=== PATIENT | female | born 1940 | race Caucasian/White ===

== ENCOUNTER 2020-08-20 12:15 | Outpatient (CLI) | payer BC, SELFPAY ==
--- NOTE | 2020-08-20 12:23 | US_ITS ---
WS: [id number] ULTRASOUND SOFT TISSUES submandibular regions. HISTORY: LYMPHADENOPATHY COMPARISON: None available. TECHNIQUE: 2-D and color Doppler imaging is submitted. Ultrasound directed to the submandibular region. Submandibular glands are normal. Benign cervical bryan in lymph nodes. No significant adenopathy. No suspicious neck mass. US/US soft tissue/extremity 67000 IMPRESSION: Negative ultrasound of the neck. No submandibular gland mass or adenopathy. Allen ign lymph nodes are noted along the cervical chains.
== END 2020-08-20 12:16 | disposition home or self-care (01) ==
LOC: US 12:20
PROVIDERS: PCP Internal Medicine; Visit Provider Internal Medicine
DX: R59.1 Generalized enlarged lymph nodes (principal)
CPT/HCPCS: 76882

== ENCOUNTER 2021-09-25 16:30 | Emergency (ER) | payer BC, SELFPAY ==
[2021-09-25] VITALS (9 sets, daily range): BP systolic 163–189; BP diastolic 82–109; PULSE 82–101; RESP 16–20; TEMP 36.7; O2SAT 92–97; BMI 29.0
--- NOTE | 2021-09-25 20:38 | W.ED.GENADLT ---
HPI - General Adult General: Chief complaint: Extremity Problem,Nontraumatic Stated complaint: BLE swelling/redness/swelling Time Seen by Provider: 09/25/21 20:36 History of Present Illness: Patient is an 81-year-old female with history of lower extremity edema presenting to the emergency room for concerns of purple swollen legs. Patient states that she has been having symptoms for the last 3 weeks. She was initially diagnosed with cellulitis and was told to start on antibiotic. Since then, patient has still noticed swelling of the legs decided to come to the emergency room for further evaluation. Patient denies any dyspnea, fever/chills cough, runny nose sore throat. Patient denies any abdominal complaints nausea/vomiting, diarrhea melena/hematochezia. Patient has no complaints. Onset:3 weeks ago Duration:3 weeks Location:home Severity:moderate Associated symptoms: Deny chest pain, dyspnea, nausea, rash, palpitations or vomiting Review of Systems Const: Denies: fever(s) or chills Eyes: Denies: change in vision ENMT: Denies: mouth pain Card: Denies: chest pain or palpitations Resp: Denies: dyspnea or non-productive cough GI: Denies: abdominal pain, nausea, vomiting or diarrhea : Denies: dysuria Musc: Reports: other (+leg swelling and purple); Denies: extremity pain Skin/Breast: Denies: rash or new lesions Neuro: Denies: weakness in extremities Psych: Reports: other (Normal mood) Brian/Lymph: Denies: easy bruising PFSH ED PFSH: Medical History Leg edema Social History Smoking and tobacco status: never smoked Alcohol intake: never Lives independently: Yes Marital status: / Current occupational status: retired Physical Exam Const: COMMON NORMALS: alert HENMT: COMMON NORMALS: atraumatic HEAD & SCALP: atraumatic MOUTH: moist mucous membranes not abnormal Eye: COMMON NORMALS: EOMs intact bilaterally and conjunctivae normal CONJUNCTIVA: Yes conjunctivae normal Neck/C-Spine: COMMON NORMALS: full ROM and supple Resp: COMMON NORMALS: normal respiratory effort and clear to auscultation bilaterally AUSCULTATION: clear to auscultation bilaterally Cardio: COMMON NORMALS: regular rate RATE: regular rate GI: COMMON NORMALS: Soft to palpation and non-tender PALPATION: Yes Soft to palpation Extremity: COMMON NORMALS: full ROM OTHER: 4+ edema in the lower extremity bilaterally, extremity appears to be warm, cap refill 4 seconds in toes b/l, legs appears to be bluish/purple, no focal tenderness palpation, no increase in warmth b/l to the above the knees b/l Neuro: SENSORIUM/ORIENTATION: Yes alert MOTOR EXAM: No Abnormal motor strength present and Other motor observations present (no focal motor deficits) Psych: COMMON NORMALS: speech normal SPEECH: Yes normal speech MOOD & AFFECT: Yes euthymic mood Course Vital Signs: Vital signs: Vital Signs Temperature 98.0 F 09/25/21 17:06 Pulse Rate 82 09/25/21 21:02 Respiratory Rate 20 H 09/25/21 21:02 Blood Pressure 175/84 09/25/21 21:02 Pulse Oximetry 92 09/25/21 21:02 Oxygen Delivery Me thod 09/25/21 21:02 MDM - General Adult Medical Decision Making Patient is an 81-year-old female with history of lower extremity edema presenting to the emergency room for concerns of purple swollen legs. Patient states that she has been having symptoms for the last 3 weeks. Patient is noted to have 4+ lower extremity edema to the above the knees bilaterally purpleish legs and decreased cap refill. CTA of the lower extremity did not show any signs of cut off. Patient has intact distal flow. Ultrasound did not show any signs of acute DVTs bilaterally. Patient is instructed follow-up closely with primary care provider for further evaluation of leg swelling and purple color. Incidental findings of R sided renal mass discussed extensively with patient. Patient received a copy of the CT report with the documented findings. Patient is instructed to follow up urgently with specialists. I have given patient follow up with our immigration case worker to be seen by our outpatient by Dr. Aparicio for the R sided mass. Patient aware of a call from our immigration case worker to schedule for appointment(s) and verbalizes understanding of the importance of following up. Pending US at this time. Lab Data : 09/25/21 21:06 09/25/21 21:06 Radiology Impressions Lower Extremity CTA 09/25/21 20:49 IMPRESSION: 1. 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 2. Right renal mass highly suspicious for malignancy. 3. Incomplete imaging of liver and spleen but findings suggest cirrhosis 4. Moderate ascites 5. Large fibroid uterus. ADDENDUM: 09/25/212251 Addendum: THIS REPORT CONTAINS FINDINGS THAT MAY BE CRITICAL TO PATIENT CARE. The findings were verbally communicated via telephone conference with JANICE GUADALUPE at 10:50 PM CDT on 09/25/2021. The findings were acknowledged and understood. Laboratory Results WBC 8.7 10^3/uL (4.0-10.0) 09/25/21 21:06 RBC 5.11 10^6/uL (4.1-5.3) 09/25/21 21:06 Hgb 15.3 g/dL (11.5-15.3) 09/25/21 21:06 Hct 48.7 % (37.0-47.0) H 09/25/21 21:06 MCV 95.3 fl (81-99) 09/25/21 21:06 MCH 29.9 pg (28.0-34.0) 09/25/21 21:06 MCHC 31.4 g/dL (30.0-36.0) 09/25/21 21:06 RDW 14.3 % (12.1-15.1) 09/25/21 21:06 Plt Count 234 10^3/cmm (130-400) 09/25/21 21:06 MPV 11.6 fL (7.4-10.4) H 09/25/21 21:06 Neut % (Auto) 76.2 % 09/25/21 21:06 Lymph % (Auto) 11.5 % 09/25/21 21:06 [place] % (Auto) 10.0 % 09/25/21 21:06 Eos % (Auto) 1.3 % 09/25/21 21:06 Baso % (Auto) 0.8 % 09/25/21 21:06 Neut # (Auto) 6.62 10^3/uL (1.8-7.7) 09/25/21 21:06 Lymph # (Auto) 1.0 10^3/uL (0.8-4.8) 09/25/21 21:06 [place] # (Auto) 0.9 10^3/uL (0.2-0.9) 09/25/21 21:06 Eos # (Auto) 0.1 10^3/uL (0.0-0.8) 09/25/21 21:06 Baso # (Auto) 0.1 10^3/uL (0.0-0.1) 09/25/21 21:06 Nucleated RBC % (auto) 0 % 09/25/21 21:06 Nucleated RBCs # 0.0 /100WBC 09/25/21 21:06 Sodium 139 mmol/L (136-145) 09/25/21 21:06 Potassium 4.4 mmol/L (3.5-5.1) 09/25/21 21:06 Chloride 100 mmol/L (98-107) 09/25/21 21:06 Carbon Dioxide 28 mmol/L (22-29) 09/25/21 21:06 Anion Gap 15.4 (5-19) 09/25/21 21:06 BUN 15 mg/dL (8-23) 09/25/21 21:06 Creatinine 1.0 mg/dL (0.5-0.9) H 09/25/21 21:06 GFR Calculation Not Reportable 09/25/21 21:06 Glucose 172 mg/dL (65-115) H 09/25/21 21:06 Calculated Osmolality 293 mOsm/kg (285-295) 09/25/21 21:06 Calcium 9.3 mg/dL (8.5-10.5) 09/25/21 21:06 Total Bilirubin 0.9 mg/dL (0.15-1.2) 09/25/21 21:06 AST 29 U/L (0-32) 09/25/21 21:06 ALT 26 U/L (0-33) 09/25/21 21:06 Alkaline Phosphatase 137 IU/L (35-105) H 09/25/21 21:06 C-Reactive Protein 18.6 mg/L (0.0-4.9) H 09/25/21 21:06 NT-Pro-B Natriuret Pep 5644 pg/mL (0-450) H 09/25/21 21:06 Total Protein 6.9 g/dL (6.6-8.7) 09/25/21 21:06 Albumin 3.8 g/dL (3.5-5.2) 09/25/21 21:06 Globulin 3.1 g/dL (1.3-4.6) 09/25/21 21:06 Imaging Data Other Imaging: Radiologist's impression: [facility] [address] [place] [address] CT Scan Report Signed Patient: Aleja Woodard Unit #: [id number] : 1940 Age/Sex: 81 / F ADM Date: 09/25/21 Loc: ER Room/Bed: Attending Dr: Ordering Provider/Ordering MD: Janice Guadalupe MD Date of Service: 09/25/21 Procedure(s): [place] [address] Accession Number(s): [id number] Report Number: [id number] PROCEDURE INFORMATION: Exam: CTA Abdominal Aorta and Bilateral Lower Extremities (Run-off) With Contrast Exam date and time: 09/25/2021 9:51 PM Age: 81 years old Clinical indication: Discoloration or erythema; Foot; Bilateral; Additional info: Please run off, severe blue and decreased cap reifll TECHNIQUE: Imaging protocol: Computed tomographic angiography of the of the abdominal aorta, pelvis and bilateral lower extremities with contrast. 3D rendering (Not supervised by radiologist): MIP and/or 3D reconstructed images were created by the technologist. Radiation optimization: All CT scans at this facility use at least one of these dose optimization techniques: automated exposure control; mA and/or kV adjustment per patient size (includes targeted exams where dose is matched to clinical indication); or iterative reconstruction. Contrast material: OMNI 350; Contrast volume: 95 ml; Contrast route: INTRAVENOUS (IV);? COMPARISON: US soft tissue/extremity 18071 08/20/2020 12:36 PM RADIATION DOSE METRICS: Total DLP (mGy-cm): 585.92 FINDINGS: Limitations: Some parts of the liver and spleen are not included on this exam. Aorta: There is mild atherosclerotic calcification of the abdominal aorta without evidence of aneurysm. Celiac trunk and mesenteric arteries: Origins of the celiac and SMA are not included on this exam. Renal arteries: There is a single renal artery seen on each side without stenosis. Right iliac arteries: There is no stenosis in the right common iliac artery or right external iliac artery. Right femoral/popliteal arteries: There are mild atherosclerotic changes in the right common femoral artery and superficial femoral artery. There is some atherosclerotic disease in the right popliteal artery which is generally patent without significant stenosis. Right infrapopliteal arteries: Right anterior tibial artery is patent throughout its length and supplies the foot via the dorsalis pedis artery. Right tibial peroneal trunk is patent but there is proximal stenosis of the right peroneal artery which is occluded in its midportion and reconstitutes distally via collaterals. Right posterior tibial artery is small and stenotic and is occluded at the level of the mid calf and not seen at the level of the ankle. Delayed imaging might be helpful to roll picker any flow in the right calf on future examinations. Left iliac arteries: There is no stenosis in the left common iliac artery or external iliac artery. Left femoral/popliteal arteries: There is mild atherosclerotic changes in the left common femoral artery and superficial femoral artery.? There are multiple levels of mild atherosclerotic changes in the left popliteal artery without occlusion. Left infrapopliteal arteries: Left anterior tibial artery is patent throughout its length and supplies the foot via the dorsalis pedis artery. Left tibial peroneal trunk is patent. Left posterior tibial artery is patent but thready throughout its length with multiple areas of stenosis. Left peroneal artery is patent but small throughout its length but is patent to the level of the ankle. Veins: Right renal vein is patent. Liver: Liver has somewhat nodular contours suggesting possibility of cirrhosis. Gallbladder and bile ducts: Unremarkable. No calcified stones. No ductal dilation.? Pancreas: The pancreas is normal. Spleen: The spleen demonstrates punctate calcifications, consistent with remote granulomatous organism exposure. Adrenal glands: Normal. No mass.? Kidneys and ureters: The left kidney is normal. There is a 4.5 cm sized heterogeneously enhancing solid mass in the mid right kidney, highly worrisome for renal malignancy. Further evaluation recommended. Stomach and bowel: Unremarkable. No obstruction. No mucosal thickening.? Appendix: Not identified Urinary bladder: Unremarkable. No mass.? Reproductive: Uterus is bulky and enlarged and contains multiple large fibroids measuring up to 8 cm. Intraperitoneal space: There is a moderate amount of free intraperitoneal fluid present. Lymph nodes: No lymphadenopathy. Bones/joints: There is mild lumbar scoliosis concave to the left. The lumbar spine demonstrates moderate degenerative changes at multiple levels. Soft tissues: Unremarkable.? CT/[place] [address] IMPRESSION: 1. 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 2. Right renal mass highly suspicious for malignancy. 3. Incomplete imaging of liver and spleen but findings suggest cirrhosis 4. Moderate ascites 5. Large fibroid uterus. ? Dictated By: Billy Rivera Signed By: Billy Rivera Signed Date/Time: 09/25/212249 DD/ 50 Discharge Plan Discharge Patient Disposition: Home Clinical Impression: Leg swelling Condition: Stable Prescriptions: No Action metoprolol tartrate 50 mg tablet 50 mg PO BID no.[id number] no2 27 mg iron- 1 mg tablet See Rx Instructions PO DAILY Rx Instructions: Strenght unknown PO daily; aspirin [Logan Chewable Aspirin] 81 mg tablet,chewable 81 mg PO DAILY zinc 50 mg tablet See Rx Instructions PO DAILY Rx Instructions: Strenght unknown PO daily; yhsu-yhdt-dxrkl-edft-oq-wxn-mt 500-100 mg capsule See Rx Instructions PO DAILY Rx Instructions: Beet powder, strenght unknown PO daily; Immune Support Complex 75 mg tablet PO DAILY Alive Women's Gummy Vitamin 200 mcg- 37.5 mg tablet,chewable PO DAILY digestive enzymes Capsule See Rx Instructions PO DAILY Rx Instructions: Sarrazimes 20,000 PO daily; docusate sodium [Stool Softener] 100 mg capsule See Rx Instructions PO DAILY Rx Instructions: Strenght unknown PO daily; feverfew 100 mg capsule See Rx Instructions PO DAILY Rx Instructions: Strenght unknown PO daily; Megared Adv Total Body Refresh 462-481-355-30 mg capsule See Rx Instructions PO DAILY Rx Instructions: Strenght unknown PO daily; garlic 5,000 mcg tablet See Rx Instructions PO DAILY Rx Instructions: Strenght unknown PO daily; uxoqbno-yfnp-xovwn-oreg-capryl 100 mg-150 mg- 50 mg-150 mg capsule See Rx Instructions PO DAILY Rx Instructions: Tumeric/curivimen PO daily; cholecalciferol (vitamin D3) 125 mcg (5,000 unit) capsule 125 mcg PO DAILY dietary supplement Capsule See Rx Instructions PO DAILY Rx Instructions: Qunol PO daily; nortriptyline 75 mg capsule 75 mg PO .qhs Qty: 30 3RF Discharge Orders: Discharge ED (Routine); Ordered 09/25/21 Ordered By: Janice Guadalupe Referrals: Molly Bishop MD [Primary Care Provider] - Discharge Diet: Advance as tolerated Discharge Activity: Increase activity as tolerated Patient Instructions: Needle Biopsy (DC) Activity Restrictions/Additional Instructions: Our immigration case worker will have you follow-up with a Urologist in the next few days for the right sided kidney mass. You would be expected to have a phone call with our immigration case worker who will put you on the schedule. You can expect a call from us in the next 2-3 days. If you don't hear from us, call us back in the emergency room at [phone]. Here's a copy of your CT report: [facility] [address] [place] [address] [address] [address] Scan Report Signed Patient: Aleja Woodard Unit #: [id number] : 1940 Age/Sex: 81 / F ADM Date: 09/25/21 Loc: ER Room/Bed: Attending Dr: Ordering Provider/Ordering MD: Janice Guadalupe MD Date of Service: 09/25/21 Procedure(s): [place] [address] Accession Number(s): [id number] Report Number: [id number] PROCEDURE INFORMATION: Exam: CTA Abdominal Aorta and Bilateral Lower Extremities (Run-off) With Contrast Exam date and time: 09/25/2021 9:51 PM Age: 81 years old Clinical indication: Discoloration or erythema; Foot; Bilateral; Additional info: Please run off, severe blue and decreased cap reifll TECHNIQUE: Imaging protocol: Computed tomographic angiography of the of the abdominal aorta, pelvis and bilateral lower extremities with contrast. 3D rendering (Not supervised by radiologist): MIP and/or 3D reconstructed images were created by the technologist. Radiation optimization: All CT scans at this facility use at least one of these dose optimization techniques: automated exposure control; mA and/or kV adjustment per patient size (includes targeted exams where dose is matched to clinical indication); or iterative reconstruction. Contrast material: OMNI 350; Contrast volume: 95 ml; Contrast route: INTRAVENOUS (IV);? COMPARISON: US soft tissue/extremity 17005 08/20/2020 12:36 PM RADIATION DOSE METRICS: Total DLP (mGy-cm): 585.92 FINDINGS: Limitations: Some parts of the liver and spleen are not included on this exam. Aorta: There is mild atherosclerotic calcification of the abdominal aorta without evidence of aneurysm. Celiac trunk and mesenteric arteries: Origins of the celiac and SMA are not included on this exam. Renal arteries: There is a single renal artery seen on each side without stenosis. Right iliac arteries: There is no stenosis in the right common iliac artery or right external iliac artery. Right femoral/popliteal arteries: There are mild atherosclerotic changes in the right common femoral artery and superficial femoral artery. There is some atherosclerotic disease in the right popliteal artery which is generally patent without significant stenosis. Right infrapopliteal arteries: Right anterior tibial artery is patent throughout its length and supplies the foot via the dorsalis pedis artery. Right tibial peroneal trunk is patent but there is proximal stenosis of the right peroneal artery which is occluded in its midportion and reconstitutes distally via collaterals. Right posterior tibial artery is small and stenotic and is occluded at the level of the mid calf and not seen at the level of the ankle. Delayed imaging might be helpful to roll picker any flow in the right calf on future examinations. Left iliac arteries: There is no stenosis in the left common iliac artery or external iliac artery. Left femoral/popliteal arteries: There is mild atherosclerotic changes in the left common femoral artery and superficial femoral artery.? There are multiple levels of mild atherosclerotic changes in the left popliteal artery without occlusion. Left infrapopliteal arteries: Left anterior tibial artery is patent throughout its length and supplies the foot via the dorsalis pedis artery. Left tibial peroneal trunk is patent. Left posterior tibial artery is patent but thready throughout its length with multiple areas of stenosis. Left peroneal artery is patent but small throughout its length but is patent to the level of the ankle. Veins: Right renal vein is patent. Liver: Liver has somewhat nodular contours suggesting possibility of cirrhosis. Gallbladder and bile ducts: Unremarkable. No calcified stones. No ductal dilation.? Pancreas: The pancreas is normal. Spleen: The spleen demonstrates punctate calcifications, consistent with remote granulomatous organism exposure. Adrenal glands: Normal. No mass.? Kidneys and ureters: The left kidney is normal. There is a 4.5 cm sized heterogeneously enhancing solid mass in the mid right kidney, highly worrisome for renal malignancy. Further evaluation recommended. Stomach and bowel: Unremarkable. No obstruction. No mucosal thickening.? Appendix: Not identified Urinary bladder: Unremarkable. No mass.? Reproductive: Uterus is bulky and enlarged and contains multiple large fibroids measuring up to 8 cm. Intraperitoneal space: There is a moderate amount of free intraperitoneal fluid present. Lymph nodes: No lymphadenopathy. Bones/joints: There is mild lumbar scoliosis concave to the left. The lumbar spine demonstrates moderate degenerative changes at multiple levels. Soft tissues: Unremarkable.? CT/[place] [address] IMPRESSION: 1. 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 2. Right renal mass highly suspicious for malignancy. 3. Incomplete imaging of liver and spleen but findings suggest cirrhosis 4. Moderate ascites 5. Large fibroid uterus. ? Dictated By: Billy Rivera Signed By: Billy Rivera Signed Date/Time: 09/25/21 7142 DD/ 50 Coding Level of Care Code ED [employer] Professor for Chg Fwd Exam Comprehensive
--- NOTE | 2021-09-25 20:49 | CTR_ITS ---
PROCEDURE INFORMATION: Exam: CTA Abdominal Aorta and Bilateral Lower Extremities (Run-off) With Contrast Exam date and time: 09/25/2021 9:51 PM Age: 81 years old Clinical indication: Discoloration or erythema; Foot; Bilateral; Additional info: Please run off, severe blue and decreased cap reifll TECHNIQUE: Imaging protocol: Computed tomographic angiography of the of the abdominal aorta, pelvis and bilateral lower extremities with contrast. 3D rendering (Not supervised by radiologist): MIP and/or 3D reconstructed images were created by the technologist. Radiation optimization: All CT scans at this facility use at least one of these dose optimization techniques: automated exposure control; mA and/or kV adjustment per patient size (includes targeted exams where dose is matched to clinical indication); or iterative reconstruction. Contrast material: OMNI 350; Contrast volume: 95 ml; Contrast route: INTRAVENOUS (IV); COMPARISON: US soft tissue/extremity [id number] 08/20/2020 12:36 PM RADIATION DOSE METRICS: Total DLP (mGy-cm): 585.92 FINDINGS: Limitations: Some parts of the liver and spleen are not included on this exam. Aorta: There is mild atherosclerotic calcification of the abdominal aorta without evidence of aneurysm. Celiac trunk and mesenteric arteries: Origins of the celiac and SMA are not included on this exam. Renal arteries: There is a single renal artery seen on each side without stenosis. Right iliac arteries: There is no stenosis in the right common iliac artery or right external iliac artery. Right femoral/popliteal arteries: There are mild atherosclerotic changes in the right common femoral artery and superficial femoral artery. There is some atherosclerotic disease in the right popliteal artery which is generally patent without significant stenosis. Right infrapopliteal arteries: Right anterior tibial artery is patent throughout its length and supplies the foot via the dorsalis pedis artery. Right tibial peroneal trunk is patent but there is proximal stenosis of the right peroneal artery which is occluded in its midportion and reconstitutes distally via collaterals. Right posterior tibial artery is small and stenotic and is occluded at the level of the mid calf and not seen at the level of the ankle. Delayed imaging might be helpful to medicinal plant picker any flow in the right calf on future examinations. Left iliac arteries: There is no stenosis in the left common iliac artery or external iliac artery. Left femoral/popliteal arteries: There is mild atherosclerotic changes in the left common femoral artery and superficial femoral artery. There are multiple levels of mild atherosclerotic changes in the left popliteal artery without occlusion. Left infrapopliteal arteries: Left anterior tibial artery is patent throughout its length and supplies the foot via the dorsalis pedis artery. Left tibial peroneal trunk is patent. Left posterior tibial artery is patent but thready throughout its length with multiple areas of stenosis. Left peroneal artery is patent but small throughout its length but is patent to the level of the ankle. Veins: Right renal vein is patent. Liver: Liver has somewhat nodular contours suggesting possibility of cirrhosis. Gallbladder and bile ducts: Unremarkable. No calcified stones. No ductal dilation. Pancreas: The pancreas is normal. Spleen: The spleen demonstrates punctate calcifications, consistent with remote granulomatous organism exposure. Adrenal glands: Normal. No mass. Kidneys and ureters: The left kidney is normal. There is a 4.5 cm sized heterogeneously enhancing solid mass in the mid right kidney, highly worrisome for renal malignancy. Further evaluation recommended. Stomach and bowel: Unremarkable. No obstruction. No mucosal thickening. Appendix: Not identified Urinary bladder: Unremarkable. No mass. Reproductive: Uterus is bulky and enlarged and contains multiple large fibroids measuring up to 8 cm. Intraperitoneal space: There is a moderate amount of free intraperitoneal fluid present. Lymph nodes: No lymphadenopathy. Bones/joints: There is mild lumbar scoliosis concave to the left. The lumbar spine demonstrates moderate degenerative changes at multiple levels. Soft tissues: Unremarkable. CT/[place] [id number] IMPRESSION: 1. 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 2. Right renal mass highly suspicious for malignancy. 3. Incomplete imaging of liver and spleen but findings suggest cirrhosis 4. Moderate ascites 5. Large fibroid uterus.
--- NOTE | 2021-09-25 20:52 | USR_ITS ---
PROCEDURE INFORMATION: Exam: US Duplex Lower Extremity Veins, Bilateral Exam date and time: 09/25/2021 10:31 PM Age: 81 years old Clinical indication: Edema, localized; Lower extremity, bilateral; Additional info: B/l purple legs TECHNIQUE: Imaging protocol: Real-time Duplex ultrasound of the bilateral extremities with 2-D kraus scale, color Doppler flow and spectral waveform analysis with image documentation. Complete exam focused on the bilateral lower extremity veins. COMPARISON: US soft tissue/extremity [id number] 08/20/2020 12:36 PM FINDINGS: Right deep veins: Unremarkable. The common femoral, femoral, proximal profunda femoral and popliteal veins are patent without thrombus. Normal Doppler waveforms. Normal compressibility and/or augmentation response. Right superficial veins: Saphenofemoral junction is patent without thrombus. Left deep veins: Unremarkable. The common femoral, femoral, proximal profunda femoral and popliteal veins are patent without thrombus. Normal Doppler waveforms. Normal compressibility and/or augmentation response. Left superficial veins: Saphenofemoral junction is patent without thrombus. Soft tissues: Unremarkable. US/[place] [id number] IMPRESSION: No evidence of deep vein thrombosis.
--- NOTE | 2021-09-25 21:02 | PC.NURSE ---
assumed care of patient at this time.
[2021-09-25 21:30] LABS: Basophils # 0.1 10^3/uL (0.0-0.1); Basophils % 0.8 %; Eosinophils # 0.1 10^3/uL (0.0-0.8); Eosinophils % 1.3 %; Hematocrit 48.7 % (37.0-47.0); Hemoglobin 15.3 g/dL (11.5-15.3); Lymphocytes % 11.5 %; Mean Corpuscular HGB Conc 31.4 g/dL (30.0-36.0); Mean Corpuscular Hemoglobin 29.9 pg (28.0-34.0); Mean Corpuscular Volume 95.3 fl (81-99); Mean Platelet Volume 11.6 fL (7.4-10.4); Monocytes # 0.9 10^3/uL (0.2-0.9); Neutrophils # 6.62 10^3/uL (1.8-7.7); Neutrophils % 76.2 %; Nucleated Red Blood Cells % 0 %; Platelet Count 234 10^3/cmm (130-400); Red Blood Count 5.11 10^6/uL (4.1-5.3); Red Cell Distribution Width 14.3 % (12.1-15.1); White Blood Count 8.7 10^3/uL (4.0-10.0)
--- NOTE | 2021-09-25 22:00 | PC.NURSE ---
patient states that she prefers to stay in chair off monitor, notified of purpose of monitoring, continues to want off monitoring.
[2021-09-25 22:07] LABS: Alanine Aminotransferase 26 U/L (0-33); Albumin Level 3.8 g/dL (3.5-5.2); Alkaline Phosphatase 137 IU/L (35-105); Anion Gap 15.4 (5-19); Aspartate Amino Transferase 29 U/L (0-32); Blood Urea Nitrogen 15 mg/dL (8-23); C Reactive Protein 18.6 mg/L (0.0-4.9); Calcium 9.3 mg/dL (8.5-10.5); Carbon Dioxide 28 mmol/L (22-29); Chloride 100 mmol/L (98-107); Globulin 3.1 g/dL (1.3-4.6); Glucose 172 mg/dL (65-115); NT Pro B Type Natriuretic Pept 5644 pg/mL (0-450); Osmolality Calculated 293 mOsm/kg (285-295); Potassium 4.4 mmol/L (3.5-5.1); Sodium 139 mmol/L (136-145); Total Bilirubin 0.9 mg/dL (0.15-1.2); Total Protein 6.9 g/dL (6.6-8.7)
[2021-09-25] MEDS: iohexol 350 mg/mL 100 mL Btl IV (22:07)
--- NOTE | 2021-09-26 10:05 | DCPLANNER ---
Addendum entered by Piper May 10/20/21 09:16: Patient attended appointment with urology Addendum entered by Piper May 09/29/21 14:16: Patient has a follow up appointment scheduled for Thursday, October 07, 2021 at 10:[address] Aparicio at urology. Clinic will call patient with appointment information. Original Note: health program manager had message to schedule a follow up appointment for patient with urology. health program manager sent patients information to the front office staff at urology. Patients information will be printed and reviewed. Clinic will call patient with appointment information.
== END 2021-09-25 23:29 | disposition home or self-care (01) ==
PROVIDERS: Emergency Medicine; Emergency Provider Emergency Medicine; PCP Internal Medicine
DX: M79.89 Other specified soft tissue disorders (principal); Z79.82 Long term (current) use of aspirin
CPT/HCPCS: 73706; 80053; 83880; 85025; 86140; 93970; 99284; Q9967

== ENCOUNTER → 2021-10-07 09:21 | Outpatient (BNVA) | payer BC, SELFPAY | PROVIDERS: PCP Internal Medicine; Visit Provider Urology | DX: R33.9 Retention of urine, unspecified (principal); N28.89 Other specified disorders of kidney and ureter; Z86.018 Personal history of other benign neoplasm | CPT/HCPCS: 81003 ==

== ENCOUNTER 2021-10-30 10:39 | Emergency (ER) | payer BC, SELFPAY ==
[2021-10-30] VITALS (7 sets, daily range): BP systolic 142–181; BP diastolic 78–89; PULSE 75–82; RESP 14–16; TEMP 36.8; O2SAT 92–98; BMI 31.8
--- NOTE | 2021-10-30 10:57 | XRR_ITS ---
PROCEDURE INFORMATION: Exam: XR Abdomen Exam date and time: 10/30/2021 11:30 AM Age: 81 years old Clinical indication: Nausea and vomiting; Additional info: N/v/d TECHNIQUE: Imaging protocol: Radiologic exam of the abdomen. Views: Frontal supine view of the abdomen. 1 View. COMPARISON: [place] [id number] 09/25/2021 9:51 PM FINDINGS: Gastrointestinal tract: Normal. No bowel dilation. Bones/joints: There are degenerative changes in the visualized spine. Mild lower lumbar dextroscoliosis. XR/XR KUB portable [id number] IMPRESSION: No acute findings.
--- NOTE | 2021-10-30 11:06 | W.ED.WEAKNES ---
HPI - Weakness General: Chief complaint: Weakness Stated complaint: weakness Time Seen by Provider: 10/30/21 10:50 History of Present Illness: 81-year-old female presents with generalized weakness, some nausea vomiting diarrhea, decreased appetite. Patient is generalized malaise and weakness and decreased appetite is been going on for months. Patient reports some recent do some vomiting nausea diarrhea. Patient denies any fever, chills, cough. She reports that she is just weaker than normal. Associated symptoms: Reports nausea and vomiting; Denies chest pain, chills, dysuria, fever(s), headache(s) or syncope Review of Systems Const: Reports: malaise; Denies: fever(s) or chills Eyes: Denies: change in vision or blurry vision ENMT: Denies: throat pain or ear or mastoid pain Card: Denies: chest pain, palpitations, lightheadedness or syncope Resp: Denies: dyspnea or productive cough GI: Reports: nausea, vomiting and diarrhea; Denies: abdominal pain : Denies: flank pain, difficulty voiding or dysuria Musc: Denies: neck pain or back pain Skin/Breast: Denies: rash or pruritus Neuro: Denies: headache(s), numbness in extremities, weakness in extremities or dizziness All/Imm: Denies: urticaria or throat swelling PFSH ED PFSH: Medical History Leg edema Right kidney mass Family History Father , at age 87 CAD (coronary artery disease) Hypertension Mother , at age 72 CAD (coronary artery disease) Social History Smoking and tobacco status: never smoked Alcohol intake: never Lives independently: Yes Marital status: / Current occupational status: retired History of recent travel: No Physical Exam Const: COMMON NORMALS: no acute distress, patient oriented x3 and alert HENMT: COMMON NORMALS: normocephalic, atraumatic and hearing grossly normal bilaterally HEAD & SCALP: normocephalic and atraumatic Eye: COMMON NORMALS: Equal, round and reactive pupils present and EOMs intact bilaterally PUPIL: Yes Equal, round and reactive pupils present Resp: COMMON NORMALS: normal respiratory effort, No use of accessory muscles and clear to auscultation bilaterally EFFORT & INSPECTION: Yes able to speak in complete sentences AUSCULTATION: clear to auscultation bilaterally Cardio: COMMON NORMALS: regular rhythm RATE: tachycardic RHYTHM: regular rhythm GI: COMMON NORMALS: Normal to inspection, nondistended, normoactive bowel sounds present, Soft to palpation and non-tender PALPATION: Yes Soft to palpation Extremity: COMMON NORMALS: normal to inspection and capillary refill normal Neuro: COMMON NORMALS: patient oriented x3, no focal motor deficits and no sensory deficits noted SENSORIUM/ORIENTATION: Yes alert Psych: COMMON NORMALS: mental status grossly normal and Normal thought process present THOUGHT PROCESS: Normal thought process present Skin: COMMON NORMALS: no rashes or lesions noted GENERAL SKIN EXAM: no rashes or lesions noted Course Vital Signs: Vital signs: Vital Signs Temperature 98.2 F 10/30/21 10:55 Pulse Rate 79 10/30/21 13:28 Respiratory Rate 16 10/30/21 13:28 Blood Pressure 181/84 10/30/21 13:28 Pulse Oximetry 93 10/30/21 13:28 Oxygen Delivery Me thod 10/30/21 13:28 MDM - Weakness Medical Decision Making Patient with a urinary tract infection. Patient with no other significant acute findings. I will start her on Keflex, give her some Zofran medicine and some loperamide to help with her diarrhea. Patient is feeling better following treatment. She is stable and discharged home Lab Data : 10/30/21 11:22 10/30/21 11:22 Radiology Impressions KUB X-Ray 10/30/21 10:57 IMPRESSION: No acute findings. Laboratory Results WBC 9.9 10^3/uL (4.0-10.0) 10/30/21 11:22 RBC 4.79 10^6/uL (4.1-5.3) 10/30/21 11:22 Hgb 14.5 g/dL (11.5-15.3) 10/30/21 11:22 Hct 45.6 % (37.0-47.0) 10/30/21 11:22 MCV 95.2 fl (81-99) 10/30/21 11:22 MCH 30.3 pg (28.0-34.0) 10/30/21 11:22 MCHC 31.8 g/dL (30.0-36.0) 10/30/21 11:22 RDW 15.5 % (12.1-15.1) H 10/30/21 11:22 Plt Count 244 10^3/cmm (130-400) 10/30/21 11:22 MPV 11.1 fL (7.4-10.4) H 10/30/21 11:22 Neut % (Auto) 84.8 % 10/30/21 11:22 Lymph % (Auto) 5.5 % 10/30/21 11:22 Crowley % (Auto) 7.8 % 10/30/21 11:22 Eos % (Auto) 0.7 % 10/30/21 11:22 Baso % (Auto) 0.8 % 10/30/21 11:22 Neut # (Auto) 8.37 10^3/uL (1.8-7.7) H 10/30/21 11:22 Lymph # (Auto) 0.5 10^3/uL (0.8-4.8) L 10/30/21 11:22 Crowley # (Auto) 0.8 10^3/uL (0.2-0.9) 10/30/21 11:22 Eos # (Auto) 0.1 10^3/uL (0.0-0.8) 10/30/21 11:22 Baso # (Auto) 0.1 10^3/uL (0.0-0.1) 10/30/21 11:22 Nucleated RBC % (auto) 0 % 10/30/21 11:22 Nucleated RBCs # 0.0 /100WBC 10/30/21 11:22 Sodium 144 mmol/L (136-145) 10/30/21 11:22 Potassium 3.1 mmol/L (3.5-5.1) L 10/30/21 11:22 Chloride 103 mmol/L (98-107) 10/30/21 11:22 Carbon Dioxide 28 mmol/L (22-29) 10/30/21 11:22 Anion Gap 16.1 (5-19) 10/30/21 11:22 BUN 14 mg/dL (8-23) 10/30/21 11:22 Creatinine 0.8 mg/dL (0.5-0.9) 10/30/21 11:22 GFR Calculation Not Reportable 10/30/21 11:22 Glucose 123 mg/dL (65-115) H 10/30/21 11:22 Calculated Osmolality 300 mOsm/kg (285-295) H 10/30/21 11:22 Calcium 8.8 mg/dL (8.5-10.5) 10/30/21 11:22 Magnesium 1.8 mg/dL (1.7-2.3) 10/30/21 11:22 Total Bilirubin 1.3 mg/dL (0.15-1.2) H 10/30/21 11:22 AST 20 U/L (0-32) 10/30/21 11:22 ALT 14 U/L (0-33) 10/30/21 11:22 Alkaline Phosphatase 155 U/L (35-105) H 10/30/21 11:22 Total Protein 6.5 g/dL (6.6-8.7) L 10/30/21 11:22 Albumin 3.4 g/dL (3.5-5.2) L 10/30/21 11:22 Globulin 3.1 g/dL (1.3-4.6) 10/30/21 11:22 Urine Color Yellow (Yellow) 10/30/21 13:06 Urine Appearance Hazy (CLEAR) A 10/30/21 13:06 Urine pH 6 (5-7) 10/30/21 13:06 Ur Specific [place] 1.020 (1.005-1.030) 10/30/21 13:06 Urine Protein Neg (Negative) 10/30/21 13:06 Urine Glucose (UA) Norm (Normal) 10/30/21 13:06 Urine Ketones Negative (Negative) 10/30/21 13:06 Urine Blood 2+ (Negative) H 10/30/21 13:06 Urine Nitrate Negative (Negative) 10/30/21 13:06 Urine Bilirubin 1+ (Negative) H 10/30/21 13:06 Urine Urobilinogen 1 mg/dL (Negative) H 10/30/21 13:06 Ur Leukocyte Esterase 1+ (Negative) H 10/30/21 13:06 Urine RBC 15-25 /hpf (0-2) H 10/30/21 13:06 Urine WBC 15-25 /hpf (0-5) H 10/30/21 13:06 Ur Squamous Epith Cells 15-25 /hpf (0-5) H 10/30/21 13:06 Ur Transition Epith Cell 0-4 /hpf 10/30/21 13:06 Amorphous Sediment Not Reportable 10/30/21 13:06 Urine Bacteria 2+ /hpf (NONE) H 10/30/21 13:06 Urine Mucus 1+ /hpf 10/30/21 13:06 Discharge Plan Discharge Condition: Stable Prescriptions: No Action metoprolol tartrate 50 mg tablet 50 mg PO BID [id number] 27 mg iron- 1 mg tablet See Rx Instructions PO DAILY Rx Instructions: Strenght unknown PO daily; aspirin [Logan Chewable Aspirin] 81 mg tablet,chewable 81 mg PO DAILY zinc 50 mg tablet See Rx Instructions PO DAILY Rx Instructions: Strenght unknown PO daily; cfzm-nwdd-xfpnt-gvvp-ky-ehx-mt 500-100 mg capsule See Rx Instructions PO DAILY Rx Instructions: Beet powder, strenght unknown PO daily; Immune Support Complex 75 mg tablet PO DAILY Alive Women's Gummy Vitamin 200 mcg- 37.5 mg tablet,chewable PO DAILY digestive enzymes Capsule See Rx Instructions PO DAILY Rx Instructions: Sarrazimes 20,000 PO daily; docusate sodium [Stool Softener] 100 mg capsule See Rx Instructions PO DAILY Rx Instructions: Strenght unknown PO daily; feverfew 100 mg capsule See Rx Instructions PO DAILY Rx Instructions: Strenght unknown PO daily; Megared Adv Total Body Refresh 214-287-386-30 mg capsule See Rx Instructions PO DAILY Rx Instructions: Strenght unknown PO daily; garlic 5,000 mcg tablet See Rx Instructions PO DAILY Rx Instructions: Strenght unknown PO daily; vechgzb-tryz-cmbzu-oreg-capryl 100 mg-150 mg- 50 mg-150 mg capsule See Rx Instructions PO DAILY Rx Instructions: Tumeric/curivimen PO daily; cholecalciferol (vitamin D3) 125 mcg (5,000 unit) capsule 125 mcg PO DAILY dietary supplement Capsule See Rx Instructions PO DAILY Rx Instructions: Qunol PO daily; nortriptyline 75 mg capsule 75 mg PO .qhs Qty: 30 3RF Referrals: Molly Bishop MD [Primary Care Provider] - Coding Level of Care Code ED Patient Liaison for Chg Fwd Exam Comprehensive
[2021-10-30] MEDS: lactated ringers 1,000 ML 999 ML IV (11:16)
[2021-10-30] MEDS: ondansetron 2 mg/ML SDV 2 mL 4 MG IVP (11:17)
[2021-10-30 11:39] LABS: Basophils # 0.1 10^3/uL (0.0-0.1); Basophils % 0.8 %; Eosinophils # 0.1 10^3/uL (0.0-0.8); Eosinophils % 0.7 %; Hematocrit 45.6 % (37.0-47.0); Hemoglobin 14.5 g/dL (11.5-15.3); Lymphocytes # 0.5 10^3/uL (0.8-4.8); Lymphocytes % 5.5 %; Mean Corpuscular HGB Conc 31.8 g/dL (30.0-36.0); Mean Corpuscular Hemoglobin 30.3 pg (28.0-34.0); Mean Corpuscular Volume 95.2 fl (81-99); Mean Platelet Volume 11.1 fL (7.4-10.4); Monocytes # 0.8 10^3/uL (0.2-0.9); Monocytes % 7.8 %; Neutrophils # 8.37 10^3/uL (1.8-7.7); Neutrophils % 84.8 %; Nucleated Red Blood Cells % 0 %; Platelet Count 244 10^3/cmm (130-400); Red Blood Count 4.79 10^6/uL (4.1-5.3); Red Cell Distribution Width 15.5 % (12.1-15.1); White Blood Count 9.9 10^3/uL (4.0-10.0)
[2021-10-30 12:07] LABS: Alanine Aminotransferase 14 U/L (0-33); Albumin Level 3.4 g/dL (3.5-5.2); Alkaline Phosphatase 155 U/L (35-105); Anion Gap 16.1 (5-19); Aspartate Amino Transferase 20 U/L (0-32); Blood Urea Nitrogen 14 mg/dL (8-23); Calcium 8.8 mg/dL (8.5-10.5); Carbon Dioxide 28 mmol/L (22-29); Chloride 103 mmol/L (98-107); Globulin 3.1 g/dL (1.3-4.6); Glucose 123 mg/dL (65-115); Magnesium 1.8 mg/dL (1.7-2.3); Osmolality Calculated 300 mOsm/kg (285-295); Potassium 3.1 mmol/L (3.5-5.1); Sodium 144 mmol/L (136-145); Total Bilirubin 1.3 mg/dL (0.15-1.2); Total Protein 6.5 g/dL (6.6-8.7)
[2021-10-30 13:22] LABS: Urine Appearance Hazy (CLEAR); Urine Color Yellow (Yellow); pH Urine 6 (5-7)
[2021-10-30 13:23] LABS: Add Urine Microscopic? YES; Bilirubin Urine 1+ (Negative); Blood Urine 2+ (Negative); Glucose Urine UA Norm (Normal); Ketones Urine Negative (Negative); Leukocyte Esterase Urine 1+ (Negative); Nitrate Urine Negative (Negative); Protein Urine Neg (Negative); Urobilinogen Urine 1 mg/dL (Negative)
[2021-10-30 13:26] LABS: Bacteria Urine 2+ /hpf; Mucus Urine 1+ /hpf; RBC Urine 15-25 /hpf (0-2); Squamous Epithelial Cell Urine 15-25 /hpf (0-5); Transitional Epi Cells Urine 0-4 /hpf; WBC Urine 15-25 /hpf (0-5)
[2021-10-30 13:27] LABS: Add Urine Culture? No
[2021-10-30] MEDS: cefTRIAXone 1,000 MG in sodium chloride 0.9% (plus) 50 ML 100 MG IV (13:40)
== END 2021-10-30 14:52 | disposition home or self-care (01) ==
PROVIDERS: Emergency Provider Student in an Organized Health Care Education/Training Program; PCP Internal Medicine
DX: R53.1 Weakness (principal); R11.2 Nausea with vomiting, unspecified; R19.7 Diarrhea, unspecified; Z79.82 Long term (current) use of aspirin
CPT/HCPCS: 74018; 80053; 81001; 83735; 85025; 96365; 96375; 99284; J0696; J2405